=== PATIENT | male | born 1970 | race Caucasian/White ===

== ENCOUNTER 2017-09-26 15:02 | Emergency (ER) | payer OTHER ==
[~2017-09-26] VITALS: Ht 167.6 cm; Wt 117.9 kg
[2017-09-26] MEDS ORDERED: SYNTHROID150 MCG PO (15:43)
[2017-09-26] MEDS ORDERED: HYDROCODONE-AP1 EAC6 PO (16:17)
[2017-09-26] MEDS ORDERED: TRAMADOL 50 MG50 MG PO (16:17)
[2017-09-26 16:34] VITALS: BP 148/97
== END 2017-09-26 16:35 | disposition home or self-care (01) ==
LOC: M.ERS 15:02
DX: M79.605 Pain in left leg (principal); E03.9 Hypothyroidism, unspecified

== ENCOUNTER 2018-01-06 14:52 | Emergency (ER) | payer OTHER ==
[~2018-01-06] VITALS: Ht 167.6 cm; Wt 117.9 kg
[~2018-01-06 14:52] MED LIST: HYDROCODONE-AP1 EAC6 PO; SYNTHROID150 MCG PO; TRAMADOL 50 MG50 MG PO
[2018-01-06 15:50] VITALS: BP 160/106
[2018-01-06] MEDS ORDERED: ULTRAM 50MG TAB50 MG PO (15:50)
== END 2018-01-06 15:59 | disposition home or self-care (01) ==
LOC: M.ERS 14:52
DX: S93.491A Sprain of other ligament of right ankle, initial encounter (principal); E03.9 Hypothyroidism, unspecified; W01.0XXA Fall on same level from slipping, tripping and stumbling without subsequent striking against object, initial encounter; Y93.89 Activity, other specified; Y92.89 Other specified places as the place of occurrence of the external cause; Y99.8 Other external cause status